=== PATIENT | female | born 1995 | race Caucasian/White ===

== ENCOUNTER 2016-07-30 10:25 | Emergency (ER) | payer BC, MEDICAID ==
[2016-07-30] MEDS ORDERED: Sodium Chloride 0.9% 1,000 ML IV ONE (10:56)
[2016-07-30] MEDS ORDERED: Ondansetron 4 MG/2 ML SDV IVPUSH ONE (10:56)
--- NOTE | 2016-07-30 10:56 | EDM.PDOC ---
ED HPI GENERAL MEDICAL PROBLEM - General Chief Complaint: Gastrointestinal Problem Stated Complaint: vomiting Time Seen by Provider: 07/30/16 10:55 Source of Information: Reports: Patient History Limitations: Reports: No Limitations - History of Present Illness INITIAL COMMENTS - FREE TEXT/NARRATIVE: 21 yo WF [id number] 17 weeks by U/S presents to ER complaining of vomiting x 2 days and feeling dehydrated. Pt reports an associated mild generalized headache. Pt denies any abdominal pain, or vaginal bleeding. Pt was last seen by her OB 3 weeks ago and had a normal U/S at that time. Pt denies any fever/ chills, denies any dysuria or frequency or urgency. 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 Denies: Abdominal Pain Musculoskeletal: Reports: No Symptoms Skin: Reports: No Symptoms Neurological: Reports: No Symptoms Psychiatric: Reports: No Symptoms Hematologic/Lymphatic: Reports: No Symptoms Immunologic: Reports: No Symptoms ED EXAM - Physical Exam Exam: See Below Exam Limited By: No Limitations General Appearance: Alert, WD/WN, No Apparent Distress Nose: Normal Inspection, Normal Mucosa, No Blood Throat/Mouth: Normal Inspection, Normal Lips, Normal Teeth, Normal Gums, Normal Oropharynx, Normal Voice, No Airway Compromise Head: Atraumatic, Normocephalic Neck: Normal Inspection, Supple, Non-Tender, Full Range of Motion Respiratory/Chest: No Respiratory Distress, Lungs Clear, Normal Breath Sounds, No Accessory Muscle Use, Chest Non-Tender Cardiovascular: Normal Peripheral Pulses, Regular Rate, Rhythm, No Edema, No Gallop, No JVD, No Murmur, No Rub GI/Abdominal: Normal Bowel Sounds, Soft, Non-Tender, No Organomegaly, No Distention, No Abnormal Bruit, No Mass Heart Tones: Present Back Exam: Normal Inspection, Full Range of Motion, NT Extremities: Normal Inspection, Normal Range of Motion, Non-Tender, Normal Capillary Refill, No Pedal Edema Neurological: Alert, Oriented, CN II-XII Intact, Normal Cognition, Normal Gait, Normal Reflexes, No Motor/Sensory Deficits Psychiatric: Normal Affect, Normal Mood Skin Exam: Warm, Dry, Intact, Normal Color, No Rash Lymphatic: No Adenopathy Course - Vital Signs Last Recorded V/S: Last Vital Signs Temp 36.7 C 07/30/16 10:35 Pulse 70 07/30/16 10:35 Resp 16 07/30/16 10:35 BP 130/64 07/30/16 10:35 Pulse Ox 99 07/30/16 10:35 - Orders/Labs/Meds Labs: Laboratory Tests 07/30/16 07/30/16 07/30/16 Range/Units 10:50 10:50 10:50 WBC 9.7 (5.0-10.0) 10^3/uL RBC 4.73 (3.80-5.50) 10^6/uL Hgb 12.7 (12.0-16.0) g/dL Hct 38.1 (37.0-47.0) % MCV 80.5 L (82.0-92.0) fL MCH 26.8 L (27.0-31.0) pg MCHC 33.3 (32.0-36.0) g/dL RDW 14.3 (11.5-14.5) % Plt Count 239 (150-300) 10^3/uL MPV 8.6 (7.4-10.4) fL Neut % (Auto) 80.1 H (50.0-70.0) % Lymph % (Auto) 15.7 L (20.0-40.0) % [place] % (Auto) 2.7 (2.0-8.0) % Eos % (Auto) 0.6 L (1.0-3.0) % Baso % (Auto) 0.9 (0.0-1.0) % Neut # (Auto) 7.7 H (2.5-7.0) 10^3/uL Lymph # (Auto) 1.5 (1.0-4.0) 10^3/uL [place] # (Auto) 0.3 (0.1-0.8) 10^3/uL Eos # (Auto) 0.1 (0.1-0.3) 10^3/uL Baso # (Auto) 0.1 (0.0-0.1) 10^3/uL Sodium 139 (136-145) mmol/L Potassium 4.1 (3.3-5.3) mmol/L Chloride 104 (98-115) mmol/L Carbon Dioxide 22.3 (21.0-32.0) mmol/L BUN 5 L (6-25) mg/dL Creatinine 0.71 (0.51-1.17) mg/dL Est Cr Clr Drug Dosing TNP Estimated GFR (MDRD) > 60 mL/min Glucose 91 (70-110) mg/dL Calcium 9.1 (8.7-10.3) mg/dL Total Bilirubin 0.4 (0.2-1.0) mg/dL AST 9 L (15-37) U/L ALT 20 (12-78) U/L Alkaline Phosphatase 98 (46-116) IU/L Total Protein 7.2 (6.4-8.2) g/dL Albumin 2.92 L (3.00-4.80) g/dL Lipase 135 (73-393) U/L HCG, Quant 301 mIU/mL Specimen Type Urine Color (YELLOW) Urine Appearance (CLEAR) Urine pH (5.0-9.0) Ur Specific [place] (1.005-1.030) Urine Protein (NEGATIVE) mg/dL Urine Glucose (UA) (NEGATIVE) mg/dL Urine Ketones (NEGATIVE) mg/dL Urine Occult Blood (NEGATIVE) Urine Nitrite (NEGATIVE) Urine Bilirubin (NEGATIVE) Urine Urobilinogen (0.2-1.0) E.U./dL Ur Leukocyte Esterase (NEGATIVE) Urine RBC /HPF Urine WBC /HPF Ur Epithelial Cells /LPF Urine Bacteria (NONE TO FEW) /HPF 07/30/16 Range/Units 11:30 WBC (5.0-10.0) 10^3/uL RBC (3.80-5.50) 10^6/uL Hgb (12.0-16.0) g/dL Hct (37.0-47.0) % MCV (82.0-92.0) fL MCH (27.0-31.0) pg MCHC (32.0-36.0) g/dL RDW (11.5-14.5) % Plt Count (150-300) 10^3/uL MPV (7.4-10.4) fL Neut % (Auto) (50.0-70.0) % Lymph % (Auto) (20.0-40.0) % [place] % (Auto) (2.0-8.0) % Eos % (Auto) (1.0-3.0) % Baso % (Auto) (0.0-1.0) % Neut # (Auto) (2.5-7.0) 10^3/uL Lymph # (Auto) (1.0-4.0) 10^3/uL [place] # (Auto) (0.1-0.8) 10^3/uL Eos # (Auto) (0.1-0.3) 10^3/uL Baso # (Auto) (0.0-0.1) 10^3/uL Sodium (136-145) mmol/L Potassium (3.3-5.3) mmol/L Chloride (98-115) mmol/L Carbon Dioxide (21.0-32.0) mmol/L BUN (6-25) mg/dL Creatinine (0.51-1.17) mg/dL Est Cr Clr Drug Dosing Estimated GFR (MDRD) mL/min Glucose (70-110) mg/dL Calcium (8.7-10.3) mg/dL Total Bilirubin (0.2-1.0) mg/dL AST (15-37) U/L ALT (12-78) U/L Alkaline Phosphatase (46-116) IU/L Total Protein (6.4-8.2) g/dL Albumin (3.00-4.80) g/dL Lipase (73-393) U/L HCG, Quant mIU/mL Specimen Type Urinvoid Urine Color Yellow (YELLOW) Urine Appearance Slightly cloudy H (CLEAR) Urine pH 7.0 (5.0-9.0) Ur Specific [place] 1.010 (1.005-1.030) Urine Protein Negative (NEGATIVE) mg/dL Urine Glucose (UA) Negative (NEGATIVE) mg/dL Urine Ketones Trace H (NEGATIVE) mg/dL Urine Occult Blood Trace-intact H (NEGATIVE) Urine Nitrite Negative (NEGATIVE) Urine Bilirubin Negative (NEGATIVE) Urine Urobilinogen 0.2 (0.2-1.0) E.U./dL Ur Leukocyte Esterase Negative (NEGATIVE) Urine RBC 0-5 /HPF Urine WBC 0-5 /HPF Ur Epithelial Cells Many H /LPF Urine Bacteria Occasional (NONE TO FEW) /HPF Meds: Medications Discontinued Medications Generic Name Dose Route Start Last Admin Trade Name Freq PRN Reason Stop Dose Admin Acetaminophen 1,000 mg 07/30/16 11:48 Tylenol Extra Strength PO 07/30/16 11:49 ONETIME ONE Sodium Chloride 1,000 mls @ 999 mls/hr 07/30/16 10:56 07/30/16 11:05 Normal Saline IV 07/30/16 11:56 999 mls/hr .BOLUS ONE Administration Ondansetron HCl 4 mg 07/30/16 10:56 07/30/16 11:15 Zofran IVPUSH 07/30/16 10:57 4 mg ONETIME ONE Administration Departure - Departure Time of Disposition: 12:02 Disposition: Home, Self-Care 01 Condition: good Clinical Impression: Hyperemesis gravidarum Urinary tract infection Qualifiers: Urinary tract infection type: acute cystitis Hematuria presence: without hematuria Qualified Code(s): N30.00 - Acute cystitis without hematuria - Discharge Information Prescriptions: Cephalexin [Keflex] 500 mg PO Q6HR #40 cap Ondansetron [Zofran ODT] 4 mg PO Q6H PRN #10 tab.dis PRN Reason: Vomiting Instructions: Hyperemesis Gravidarum, Urinary Tract Infection, Adult, Easy-to- Read Referrals: Megan Monique, FACULTY RESEARCH ASSISTANT [Primary Care Provider] - - Assessment/Plan Assessment:: 1. hyperemesis gravidarium- mild/improved 2. urinary tract infection Plan: 1. zofran ODT q8 PRN vomiting 2. keflex 500mg PO Q6 x 10 days 3. follow up with AIRLINE SECURITY REPRESENTATIVE next week for recheck 4. return to ER for worsening symptoms
[2016-07-30 11:22] LABS: CHLORIDE,CL 104 mmol/L (98-115); SODIUM,NA 139 mmol/L (136-145)
[2016-07-30 11:28] VITALS: BP 130/64
[2016-07-30] MEDS ORDERED: Acetaminophen 500 MG Tab PO ONE (11:48)
== END 2016-07-30 12:25 | disposition home or self-care (01) ==
LOC: KA.ED 10:25
DX: O21.0 Mild hyperemesis gravidarum (principal); O23.12 Infections of bladder in pregnancy, second trimester; Z79.899 Other long term (current) drug therapy; Z3A.17 17 weeks gestation of pregnancy
CPT/HCPCS: 80053; 81001; 83690; 84702; 85025; 96361; 96374; 99283; A9270; J2405; J7030

== ENCOUNTER 2016-10-22 17:58 | Emergency (ER) | payer BC, MEDICAID ==
[2016-10-22] MEDS ORDERED: Sodium Chloride 0.9% 1,000 ML IV ONE (18:24)
[2016-10-22 19:04] LABS: CHLORIDE,CL 103 mmol/L (98-115); SODIUM,NA 139 mmol/L (136-145)
--- NOTE | 2016-10-22 19:08 | EDM.PDOC ---
ED HPI GENERAL MEDICAL PROBLEM - General Chief Complaint: General Time Seen by Provider: 10/22/16 18:51 Source of Information: Reports: Patient History Limitations: Reports: No Limitations - History of Present Illness INITIAL COMMENTS - FREE TEXT/NARRATIVE: Patient presents with episodes of lightheadedness and sometimes near syncope. The first time was yesterday morning when she got up from bed. It lasted 30-60 seconds. She had a few more yesterday and 4-5 today. Usually associated with postural change but today she was sitting in her chair and felt her heart start to race. She denies any N/V or diarrhea recently. She is currently 30 weeks gestation with her second . The has been going fairly well. Earlier in her she had a lot of vomiting and dehydration but no for a couple months and she drinks about 3 liters of water daily she reports. She has had one UTI early in the but not since then and denies dysuria. She denies problems with anxiety. 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, Other OB/BYN History: - due in Jan 022016 - - Past Surgical History Other HEENT Surgeries/Procedures: reconstructive ear surgery Social & Family History - Family History Family Medical History: Noncontributory - Tobacco Use Smoking Status *Q: Never Smoker Second Hand Smoke Exposure: No - Caffeine Use Caffeine Use: Reports: None - Recreational Drug Use Recreational Drug Use: No ED ROS GENERAL - Review of Systems Review Of Systems: See Below Constitutional: Denies: Fever, Chills, Weakness, Decreased Appetite HEENT: Denies: Vertigo, Vision Change Respiratory: Reports: Shortness of Breath (She felt short of breath but was hyperventilating). Denies: Wheezing Cardiovascular: Reports: Lightheadedness. Denies: Chest Pain, Syncope GI/Abdominal: Denies: Abdominal Pain, Constipation, Diarrhea, Decreased Appetite , Nausea, Vomiting : Denies: Dysuria, Flank Pain Musculoskeletal: Reports: No Symptoms Skin: Reports: Pallor (her says she looked very pale for a little while before coming to ER). Denies: Cyanosis, Jaundice, Mottled Neurological: Denies: Confusion, Headache, Seizure, Syncope Psychiatric: Denies: Agitation, Anxiety, Confusion ED EXAM, GENERAL - Physical Exam Exam: See Below Exam Limited By: No Limitations General Appearance: Alert, WD/WN, No Apparent Distress Eye Exam: Bilateral Eye: EOMI, Normal Inspection, PERRL Ears: Normal External Exam, Hearing Grossly Normal Nose: Normal Inspection, No Blood Throat/Mouth: Normal Inspection, Normal Lips, Normal Voice, No Airway Compromise Head: Atraumatic, Normocephalic Neck: Normal Inspection, Supple, Non-Tender, Full Range of Motion Respiratory/Chest: No Respiratory Distress, Lungs Clear, Normal Breath Sounds Cardiovascular: Normal Peripheral Pulses, Regular Rate, Rhythm, No Murmur Peripheral Pulses: 2+: Carotid (L), Carotid (R), Radial (L), Radial (R), Posterior Tibial (L), Posterior Tibial (R) GI/Abdominal: Normal Bowel Sounds, Soft, Non-Tender, No Organomegaly, No Distention, Other (fundus consistent with stated gestation) Back Exam: No: CVA Tenderness (L), CVA Tenderness (R) Extremities: Normal Inspection, Normal Range of Motion, Non-Tender, No Pedal Edema Neurological: Alert, Oriented, Normal Cognition, No Motor/Sensory Deficits Psychiatric: Normal Affect, Normal Mood Skin Exam: Warm, Dry, Intact, Normal Color, No Rash Course - Vital Signs Last Recorded V/S: Last Vital Signs Temp 97.3 F 10/22/16 18:13 Pulse 113 H 10/22/16 18:56 Resp 15 10/22/16 18:56 BP 130/93 H 10/22/16 18:56 Pulse Ox 99 10/22/16 18:56 - Orders/Labs/Meds Orders: Active Orders 24 hr Category Date Time Status BASIC METABOLIC PANEL,BMP [CHEM] Stat Lab 10/22/16 18:35 Received UA W/MICROSCOPIC [URIN] Stat Lab 10/22/16 18:24 Uncollected Sodium Chloride 0.9% [Normal Saline] 1,000 ml Med 10/22/16 18:24 Active IV .BOLUS Medication Orders Sodium Chloride (Normal Saline) 1,000 mls @ 500 mls/hr IV .BOLUS ONE Stop: 10/22/16 20:23 Last Admin: 10/22/16 18:40 Dose: 500 mls/hr Labs: Laboratory Tests 10/22/16 Range/Units 18:35 WBC 11.4 H (5.0-10.0) 10^3/uL RBC 4.21 (3.80-5.50) 10^6/uL Hgb 11.9 L (12.0-16.0) g/dL Hct 35.0 L (37.0-47.0) % MCV 83.3 (82.0-92.0) fL MCH 28.2 (27.0-31.0) pg MCHC 33.9 (32.0-36.0) g/dL RDW 14.4 (11.5-14.5) % Plt Count 243 (150-300) 10^3/uL MPV 8.2 (7.4-10.4) fL Neut % (Auto) 81.2 H (50.0-70.0) % Lymph % (Auto) 14.4 L (20.0-40.0) % [place] % (Auto) 3.1 (2.0-8.0) % Eos % (Auto) 0.4 L (1.0-3.0) % Baso % (Auto) 0.9 (0.0-1.0) % Neut # (Auto) 9.3 H (2.5-7.0) 10^3/uL Lymph # (Auto) 1.6 (1.0-4.0) 10^3/uL [place] # (Auto) 0.4 (0.1-0.8) 10^3/uL Eos # (Auto) 0.0 L (0.1-0.3) 10^3/uL Baso # (Auto) 0.1 (0.0-0.1) 10^3/uL Meds: Medications Generic Name Dose Route Start Last Admin Trade Name Freq PRN Reason Stop Dose Admin Sodium Chloride 1,000 mls @ 500 mls/hr 10/22/16 18:24 10/22/16 18:40 Normal Saline IV 10/22/16 20:23 500 mls/hr .BOLUS ONE Administration - Re-Assessments/Exams Free Text/Narrative Re-Assessment/Exam: 10/22/16 19:12 She tells me that her WBC has been slightly elevated through the . Currently 11.4. heart tones at 150 bpm and steady. 10/22/16 19:55 Discussed labs and findings. Urine culture is pending. Following the fluids patient feels fine, at least for now. She wonders what to do if she feels the symptoms again and also wonders if it could be anxiety. I advised her to immediately lie down if she feels lightheaded again and discussed that this could indeed be anxiety even though she hasn't had it previously. I don't recommend starting any medications for it now, especially with her and advised follow up with her OB. Patient discharged in stable condition. Departure - Departure Time of Disposition: 19:49 Disposition: Home, Self-Care 01 Clinical Impression: Third trimester at less than 36 weeks, Intermittent lightheadedness - Discharge Information Referrals: Megan Monique, DIVING INSTRUCTOR [Primary Care Provider] - Additional Instructions: 1. Continue water intake of at least 8 cups daily. 2. Followup with your PCP/OB doctor for the ER visit. You can discuss the concern of possible anxiety. 3. Lie down immediately if you feel lightheaded to avoid falling. 4. Return to ER as needed. - My Orders Last 24 Hours: My Active Orders 10/22/16 18:24 UA W/MICROSCOPIC [URIN] Stat Sodium Chloride 0.9% [Normal Saline] 1,000 ml IV .BOLUS 10/22/16 18:35 BASIC METABOLIC PANEL,BMP [CHEM] Stat - Assessment/Plan Last 24 Hours: My Active Orders 10/22/16 18:24 UA W/MICROSCOPIC [URIN] Stat Sodium Chloride 0.9% [Normal Saline] 1,000 ml IV .BOLUS 10/22/16 18:35 BASIC METABOLIC PANEL,BMP [CHEM] Stat
[2016-10-22 19:39] VITALS: BP 119/63
== END 2016-10-22 20:00 | disposition home or self-care (01) ==
LOC: KA.ED 17:58
DX: O99.89 Other specified diseases and conditions complicating pregnancy, childbirth and the puerperium (principal); R42 Dizziness and giddiness; Z3A.36 36 weeks gestation of pregnancy; Z87.440 Personal history of urinary (tract) infections
CPT/HCPCS: 36415; 80048; 81001; 85025; 87086; 96360; 99284; J7030

== ENCOUNTER 2017-07-08 20:16 | Emergency (ER) | payer BC, MEDICAID ==
[2017-07-08 20:33] VITALS: BP 153/83
[2017-07-08] MEDS ORDERED: Oxymetazoline 0.05% Nasal Spray 15 ML Bottle NAS PRN (20:57)
--- NOTE | 2017-07-08 21:02 | EDM.PDOC ---
ED HPI GENERAL MEDICAL PROBLEM - General Chief Complaint: ENT Problem Stated Complaint: left ear pain Time Seen by Provider: 07/08/17 20:45 Source of Information: Reports: Patient History Limitations: Reports: No Limitations - History of Present Illness INITIAL COMMENTS - FREE TEXT/NARRATIVE: 22 YO WF presents to ER complaining of left ear pain x 3 days. Pt reports history of myringotomy and eustacion reconstruction. Pt reports pain has been intermittent but this evening it became worse prompting ER evaluation. Pt denies fever/chills, no nausea/vomting, no dizziness. 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 Denies: Ear Discharge Respiratory: Reports: No Symptoms Cardiovascular: Reports: No Symptoms Endocrine: Reports: No Symptoms GI/Abdominal: Reports: No Symptoms : Reports: No Symptoms Musculoskeletal: Reports: No Symptoms Skin: Reports: No Symptoms Neurological: Reports: No Symptoms Psychiatric: Reports: No Symptoms Hematologic/Lymphatic: Reports: No Symptoms Immunologic: Reports: No Symptoms ED EXAM, ENT - Physical Exam Exam: See Below Exam Limited By: No Limitations General Appearance: Alert, WD/WN, No Apparent Distress Ears: Normal External Exam, Normal Canal, Hearing Grossly Normal, TM Dullness. No: Normal TMs, Auricular Erythema, Auricular Ecchymosis, Auricular Tenderness, Mastoid Swelling, Mastoid Tenderness, TM Erythema, TM Blood, TM Fluid, TM Perforation, TM Vesicles, TM Obscured by Cerumen Nose: Normal Inspection, Normal Mucousa, No Blood Mouth/Throat: Normal Inspection, Normal Gums, Normal Lips, Normal Oropharynx, Normal Teeth Head: Atraumatic, Normocephalic Neck: Normal Inspection, Supple, Non-Tender, Full Range of Motion Respiratory/Chest: No Respiratory Distress, Lungs Clear, Normal Breath Sounds, No Accessory Muscle Use, Chest Non-Tender Cardiovascular: Normal Peripheral Pulses, Regular Rate, Rhythm, No Edema, No Gallop, No JVD, No Murmur, No Rub GI/Abdominal: Normal Bowel Sounds, Soft, Non-Tender, No Organomegaly, No Distention, No Abnormal Bruit, No Mass Back: Normal Inspection, Full Range of Motion Extremities: Normal Inspection, Normal Range of Motion, Non-Tender, No Pedal Edema, Normal Capillary Refill Neurological: Alert, Oriented, CN II-XII Intact, Normal Cognition, Normal Gait, Normal Reflexes, No Motor/Sensory Deficits Psychiatric: Normal Affect, Normal Mood Skin: Warm, Dry, Intact, Normal Color, No Rash Lymphatic: No Adenopathy Course - Vital Signs Last Recorded V/S: Last Vital Signs Temp 36.1 C 07/08/17 20:30 Pulse 95 07/08/17 20:30 Resp 16 07/08/17 20:30 BP 153/83 H 07/08/17 20:30 Pulse Ox 100 07/08/17 20:30 - Orders/Labs/Meds Orders: Active Orders 24 hr Category Date Time Status Oxymetazoline [Afrin Original 0.05% Nasal [place]] Med 07/08/17 20:57 Ordered 2 ml TONY BID PRN Departure - Departure Time of Disposition: 21:05 Disposition: Home, Self-Care 01 Condition: Good Clinical Impression: Otalgia of left ear - Discharge Information Instructions: Earache, Adult Referrals: Megan Monique, WAITER/WAITRESS BUFFET [Primary Care Provider] - Additional Instructions: 1. discharge home 2. afrin NS 2 sprays each nostril BID x 3 days 3. zyrtec 10mg PO QD 4. Benadryl 50mg PO QHS 5. Motrin 600mg PO Q6 6. follow up with PCP in 2 days for recheck 7. return to ER for worsening symptoms - My Orders Last 24 Hours: My Active Orders 07/08/17 20:57 Oxymetazoline [Afrin Original 0.05% Nasal [place]] 2 ml TONY BID PRN - Assessment/Plan Last 24 Hours: My Active Orders 07/08/17 20:57 Oxymetazoline [Afrin Original 0.05% Nasal [place]] 2 ml TONY BID PRN Assessment:: 1. Otalgia- left ear Plan: 1. discharge home 2. afrin NS 2 sprays each nostril BID x 3 days 3. zyrtec 10mg PO QD 4. Benadryl 50mg PO QHS 5. Motrin 600mg PO Q6 6. follow up with PCP in 2 days for recheck 7. return to ER for worsening symptoms
== END 2017-07-08 21:10 | disposition home or self-care (01) ==
LOC: KA.ED 20:16
DX: H92.02 Otalgia, left ear (principal)
CPT/HCPCS: 99282; A9270-GY

== ENCOUNTER 2018-03-09 17:50 | Emergency (ER) | payer BC ==
[2018-03-09] MEDS ORDERED: Sodium Chloride 0.9% 1,000 ML IV ONE (18:07)
[2018-03-09] MEDS ORDERED: Dextrose 5%-0.9% NaCl 1,000 ML IV SCH (18:30)
[2018-03-09] MEDS ORDERED: Ondansetron 4 MG/2 ML SDV IVPUSH ONE (18:34)
--- NOTE | 2018-03-09 18:35 | EDM.PDOC ---
ED HPI GENERAL MEDICAL PROBLEM - General Chief Complaint: Gastrointestinal Problem Stated Complaint: STOMACH FLU Time Seen by Provider: 03/09/18 18:30 Source of Information: Reports: Patient History Limitations: Reports: No Limitations - History of Present Illness INITIAL COMMENTS - FREE TEXT/NARRATIVE: Patient is a 22-year-old female who presents to the emergency department this evening for complaint of nausea, vomiting and diarrhea. Patient states that vomiting began this morning, but had diarrhea since yesterday.. Patient is 10 weeks . This the patient's third and she does have 2 children. is said to be uneventful to this point and she is being followed by [facility] [employer] [employer]. Patient denies chest pain, shortness of breath, abdominal pain, vaginal bleeding, dysuria, blood in stool or vomitus. Onset: Today Duration: Hour(s): Severity: Mild Improves with: Reports: None Worsens with: Reports: None Associated Symptoms: Reports: Nausea/Vomiting. Denies: Chest Pain, Fever/Chills , Shortness of Breath Upper Abdominal Pain Score (Numeric/FACES): 8 - Related Data Allergies Allergy/AdvReac Type Severity Reaction Status Date / Time No Known Drug Allergies Allergy Other Verified 03/09/18 18:02 Home Meds: Home Meds . [No Known Home Meds] 03/09/18 [History] Past Medical History HEENT History: Reports: Other (See Below) Other HEENT History: chronic ear infections,tube present (R) ear,graft to (L) ear. States has very limited hearing but can read lips. Gastrointestinal History: Reports: Cholelithiasis, Other (See Below) Other Gastrointestinal History: lap-lucila in 2017 Genitourinary History: Reports: UTI, Recurrent [employer] [employer] History: Reports: Hyperemesis, , Other (See Below) Other [employer] [employer] History: - due in Jan 022016 - Neurological History: Reports: Migraines - Past Surgical History HEENT Surgical History: Reports: Myringotomy w Tube(s), Other (See Below) Other HEENT Surgeries/Procedures: reconstructive ear surgery GI Surgical History: Reports: Cholecystectomy Social & Family History - Family History Family Medical History: Noncontributory - Caffeine Use Caffeine Use: Reports: None ED ROS GENERAL - Review of Systems Review Of Systems: ROS reveals no pertinent complaints other than HPI. Constitutional: Reports: No Symptoms HEENT: Reports: No Symptoms Respiratory: Reports: No Symptoms Cardiovascular: Reports: No Symptoms Endocrine: Reports: No Symptoms GI/Abdominal: Reports: Diarrhea, Nausea, Vomiting. Denies: Black Stool, Bloody Stool, Hematemesis, Hematochezia, Melena, Mucous in Stool : Reports: No Symptoms Musculoskeletal: Reports: No Symptoms Skin: Reports: No Symptoms Neurological: Reports: No Symptoms Psychiatric: Reports: No Symptoms Hematologic/Lymphatic: Reports: No Symptoms Immunologic: Reports: No Symptoms ED EXAM, GI/ABD - Physical Exam Exam: See Below Exam Limited By: No Limitations General Appearance: Alert, WD/WN, No Apparent Distress Throat/Mouth: Normal Inspection, Normal Oropharynx, No Airway Compromise Head: Atraumatic, Normocephalic Neck: Normal Inspection Respiratory/Chest: No Respiratory Distress, Lungs Clear, Normal Breath Sounds, No Accessory Muscle Use, Chest Non-Tender Cardiovascular: No Murmur, Tachycardia GI/Abdominal Exam: Normal Bowel Sounds, Soft, Non-Tender Back Exam: Normal Inspection. No: CVA Tenderness (L), CVA Tenderness (R) Extremities: Normal Inspection Neurological: Alert, Oriented, Normal Cognition Psychiatric: Normal Affect, Normal Mood Skin Exam: Warm, Dry, Intact, Normal Color, No Rash Lymphatic: No Adenopathy Course - Vital Signs Last Recorded V/S: Last Vital Signs Temp 97.1 F 03/09/18 17:57 Pulse 107 H 03/09/18 17:57 Resp 16 03/09/18 17:57 BP 164/88 H 03/09/18 17:57 Pulse Ox 99 03/09/18 17:57 - Orders/Labs/Meds Orders: Active Orders 24 hr Category Date Time Status Dextrose 5%-0.9% NaCl [Dextrose 5%-Normal Saline] 1,000 Med 03/09/18 18:30 Active ml IV ASDIRECTED Medication Orders Dextrose/Sodium Chloride (Dextrose 5%-Normal Saline) 1,000 mls @ 999 mls/hr IV ASDIRECTED JOSE D Last Admin: 03/09/18 18:24 Dose: 999 mls/hr Labs: Laboratory Tests 03/09/18 03/09/18 03/09/18 Range/Units 18:14 18:14 18:45 WBC 15.29 H (5.00-10.00) 10^3/uL RBC 5.10 (3.80-5.50) 10^6/uL Hgb 14.8 (12.0-16.0) g/dL Hct 42.3 (37.0-47.0) % MCV 82.9 (82.0-92.0) fL MCH 29.0 (27.0-31.0) pg MCHC 35.0 (32.0-36.0) g/dL RDW 13.4 (11.5-14.5) % Plt Count 323 (150-400) 10^3/uL MPV 9.5 (7.4-10.4) fL Immature Gran % (Auto) 0.1 (0.0-5.0) % Neut % (Auto) 82.3 H (50.0-70.0) % Lymph % (Auto) 14.1 L (20.0-40.0) % [place] % (Auto) 3.2 (2.0-8.0) % Eos % (Auto) 0.2 L (1.0-3.0) % Baso % (Auto) 0.1 (0.0-1.0) % Immature Gran # (Auto) 0.02 (0.00-0.50) 10^3/uL Neut # (Auto) 12.57 H (2.50-7.00) 10^3/uL Lymph # (Auto) 2.16 (1.00-4.00) 10^3/uL [place] # (Auto) 0.49 (0.10-0.80) 10^3/uL Eos # (Auto) 0.03 L (0.10-0.30) 10^3/uL Baso # (Auto) 0.02 (0.00-0.10) 10^3/uL Sodium 138 (136-145) mmol/L Potassium 3.6 (3.3-5.3) mmol/L Chloride 100 (98-115) mmol/L Carbon Dioxide 24.0 (21.0-32.0) mmol/L Anion Gap 17.6 H (5-15) mmol/L BUN 9 (6-25) mg/dL Creatinine 0.73 (0.51-1.17) mg/dL Est Cr Clr Drug Dosing 139.50 mL/min Estimated GFR (MDRD) > 60 mL/min Glucose 108 H (75 - 99) mg/dL Calcium 9.5 (8.7-10.3) mg/dL Total Bilirubin 0.3 (0.2-1.0) mg/dL AST 10 L (15-37) U/L ALT 26 (12-78) U/L Alkaline Phosphatase 94 (46-116) IU/L Total Protein 8.2 (6.4-8.2) g/dL Albumin 3.55 (3.00-4.80) g/dL Specimen Type Urincc Urine Color Yellow (YELLOW) Urine Appearance Slightly cloudy H (CLEAR) Urine pH 5.5 (5.0-9.0) Ur Specific [place] >= 1.030 (1.005-1.030) Urine Protein Negative (NEGATIVE) mg/dL Urine Glucose (UA) Negative (NEGATIVE) mg/dL Urine Ketones Negative (NEGATIVE) mg/dL Urine Occult Blood Small H (NEGATIVE) Urine Nitrite Negative (NEGATIVE) Urine Bilirubin Negative (NEGATIVE) Urine Urobilinogen 0.2 (0.2-1.0) E.U./dL Ur Leukocyte Esterase Negative (NEGATIVE) Urine RBC 0-5 (0-5) /HPF Urine WBC 5-10 H (0-5) /HPF Ur Epithelial Cells Many H /LPF Urine Bacteria Few (NONE TO FEW) /HPF Meds: Medications Generic Name Dose Route Start Last Admin Trade Name Freq PRN Reason Stop Dose Admin Dextrose/Sodium Chloride 1,000 mls @ 999 mls/hr 03/09/18 18:30 03/09/18 18:24 Dextrose 5%-Normal Saline IV 999 mls/hr ASDIRECTED JOSE D Administration Discontinued Medications Generic Name Dose Route Start Last Admin Trade Name Freq PRN Reason Stop Dose Admin Sodium Chloride 1,000 mls @ 999 mls/hr 03/09/18 18:07 03/09/18 18:31 Normal Saline IV 03/09/18 19:07 Not Given .BOLUS ONE Ondansetron HCl 8 mg 03/09/18 18:34 03/09/18 18:37 Zofran IVPUSH 03/09/18 18:35 8 mg ONETIME ONE Administration Ondansetron HCl 8 mg 03/09/18 19:08 Zofran Odt PO 03/09/18 19:09 ONETIME ONE - Re-Assessments/Exams Free Text/Narrative Re-Assessment/Exam: 03/09/18 19:04 Patient afebrile, nontoxic appearing, vital signs stable, nausea, vomiting has resolved. Patient will be given 2 tabs of 4 mg Zofran to go. Patient does have a prescription for Reglan from her primary and will have that filled tomorrow and will follow-up with primary in 1-2 days. Departure - Departure Time of Disposition: 19:05 Disposition: Home, Self-Care 01 Condition: Good Clinical Impression: Vomiting, Diarrhea, Viral gastroenteritis - Discharge Information Instructions: Viral Gastroenteritis, Adult, [id number], Vomiting, Adult, Nausea, Adult, [id number], Diarrhea, Adult, [id number] Forms: ED Department Discharge Additional Instructions: Follow-up at [facility] in 1-2 days. Return to emergency department sooner if symptoms continue or worsen. - My Orders Last 24 Hours: My Active Orders 03/09/18 18:30 Dextrose 5%-0.9% NaCl [Dextrose 5%-Normal Saline] 1,000 ml IV ASDIRECTED - Assessment/Plan Last 24 Hours: My Active Orders 03/09/18 18:30 Dextrose 5%-0.9% NaCl [Dextrose 5%-Normal Saline] 1,000 ml IV ASDIRECTED Assessment:: Nausea, vomiting, diarrhea Plan: Follow-up with PCP in one to 2 days
[2018-03-09 18:53] LABS: ANION GAP 17.6 mmol/L (5-15); CHLORIDE,CL 100 mmol/L (98-115); SODIUM,NA 138 mmol/L (136-145)
[2018-03-09] MEDS ORDERED: Ondansetron 4 MG Tab.DIS PO ONE (19:08)
[2018-03-09 19:15] VITALS: BP 124/64
== END 2018-03-09 20:08 | disposition home or self-care (01) ==
LOC: KA.ED 17:50
DX: A08.4 Viral intestinal infection, unspecified (principal)
CPT/HCPCS: 36415; 80053; 81001; 85025; 96361; 96374; 99284; A9270-GY; J2405; J7042

== ENCOUNTER 2018-05-18 20:05 | Emergency (ER) | payer BC ==
[2018-05-18] MEDS ORDERED: Sodium Chloride 0.9% 1,000 ML IV ONE (20:32)
[2018-05-18] MEDS ORDERED: Sodium Chloride 0.9% 10 ML Syringe FLUSH PRN (20:33)
--- NOTE | 2018-05-18 20:59 | EDM.PDOC ---
ED HPI GENERAL MEDICAL PROBLEM - General Chief Complaint: [employer] Problem Stated Complaint: Abdominal pain Time Seen by Provider: 05/18/18 20:31 Source of Information: Reports: Patient History Limitations: Reports: No Limitations - History of Present Illness INITIAL COMMENTS - FREE TEXT/NARRATIVE: Patient is a 23-year-old female who presents to the emergency department this evening with a complaint of abdominal cramping and low back pain. She states that she is 19 weeks , discomfort began about 3 days ago and has been intermittent. has been uneventful. Her [employer] is in [place]. States that she had some episodes of dysuria and dark urine. Also admits to constipation. She had one episode of nausea and vomiting this afternoon. Patient denies fever, flank pain, shortness of breath, chest pain, vaginal bleeding, or blood in stool. Onset: Gradual Duration: Day(s): Location: Reports: Abdomen Quality: Reports: Other (Cramping) Severity: Mild Improves with: Reports: Rest Worsens with: Reports: Movement Associated Symptoms: Reports: Nausea/Vomiting Abdomen Pain Score (Numeric/FACES): 6 - Related Data Allergies Allergy/AdvReac Type Severity Reaction Status Date / Time No Known Drug Allergies Allergy Other Verified 05/18/18 20:34 Home Meds: Home Meds Magnesium 30 mg PO DAILY 05/18/18 [History] Metoclopramide [Reglan] 1 tab PO ASDIRECTED PRN 05/18/18 [History] Pnv No.95/Ferrous Fum/Folic AC [ Caplet] 1 tab PO DAILY 05/18/18 [ History] Past Medical History HEENT History: Reports: Other (See Below) Other HEENT History: chronic ear infections,tube present (R) ear,graft to (L) ear. States has very limited hearing but can read lips. Gastrointestinal History: Reports: Cholelithiasis, Other (See Below) Other Gastrointestinal History: lap-lucila in 2017 Genitourinary History: Reports: UTI, Recurrent [employer] History: Reports: Hyperemesis, , Other (See Below) Other [employer] History: - due in Jan 022016 - . due Oct 16 2018 Neurological History: Reports: Migraines - Past Surgical History Head Surgeries/Procedures: Reports: None HEENT Surgical History: Reports: Myringotomy w Tube(s), Other (See Below) Other HEENT Surgeries/Procedures: reconstructive ear surgery GI Surgical History: Reports: Cholecystectomy Dermatological Surgical History: Reports: None Social & Family History - Family History Family Medical History: Noncontributory - Tobacco Use Smoking Status *Q: Never Smoker - Caffeine Use Caffeine Use: Reports: Soda - Recreational Drug Use Recreational Drug Use: No ED ROS GENERAL - Review of Systems Review Of Systems: ROS reveals no pertinent complaints other than HPI. Constitutional: Reports: No Symptoms HEENT: Reports: No Symptoms Respiratory: Reports: No Symptoms Cardiovascular: Reports: No Symptoms Endocrine: Reports: No Symptoms GI/Abdominal: Reports: Abdominal Pain, Constipation : Reports: Dysuria Musculoskeletal: Reports: Back Pain Skin: Reports: No Symptoms Neurological: Reports: No Symptoms Psychiatric: Reports: No Symptoms Hematologic/Lymphatic: Reports: No Symptoms Immunologic: Reports: No Symptoms ED EXAM - Physical Exam Exam: See Below Exam Limited By: No Limitations General Appearance: Alert, WD/WN, Anxious Throat/Mouth: Normal Inspection, Normal Oropharynx, No Airway Compromise Respiratory/Chest: No Respiratory Distress, Lungs Clear, Normal Breath Sounds, No Accessory Muscle Use, Chest Non-Tender Cardiovascular: Normal Peripheral Pulses, Regular Rate, Rhythm, No Murmur GI/Abdominal Exam: Normal Bowel Sounds, Soft, Tender (Suprapubic). No: Guarding , Rigid, Rebound Heart Tones: Present Heart Tones per Min: 170 Movement: Not Appreciated Back Exam: Paraspinal Tenderness. No: CVA Tenderness (L), CVA Tenderness (R) Extremities: Normal Inspection, No Pedal Edema Neurological: Alert, Oriented, Normal Cognition Psychiatric: Normal Affect, Normal Mood Skin Exam: Warm, Dry, Intact, Normal Color, No Rash Lymphatic: No Adenopathy Course - Vital Signs Last Recorded V/S: Last Vital Signs Temp 95.9 F 05/18/18 20:36 Pulse 90 05/18/18 21:34 Resp 16 05/18/18 21:34 BP 95/45 L 05/18/18 21:34 Pulse Ox 99 05/18/18 21:34 - Orders/Labs/Meds Orders: Active Orders 24 hr Category Date Time Status Peripheral IV Care [RC] . DIRECTED Care 05/18/18 20:33 Active Sodium Chloride 0.9% [Saline Flush] Med 05/18/18 20:33 Active 10 ml FLUSH Q8HR PRN Peripheral IV Insertion Adult [OM.PC] Routine Oth 05/18/18 20:33 Ordered Medication Orders Sodium Chloride (Saline Flush) 10 ml FLUSH Q8HR PRN PRN Reason: keep vein open Labs: Laboratory Tests 05/18/18 05/18/18 05/18/18 Range/Units 20:25 20:25 20:25 WBC 12.29 H (5.00-10.00) 10^3/uL RBC 4.33 (3.80-5.50) 10^6/uL Hgb 12.5 D (12.0-16.0) g/dL Hct 35.9 L (37.0-47.0) % MCV 82.9 (82.0-92.0) fL MCH 28.9 (27.0-31.0) pg MCHC 34.8 (32.0-36.0) g/dL RDW 14.0 (11.5-14.5) % Plt Count 256 (150-400) 10^3/uL MPV 10.0 (7.4-10.4) fL Immature Gran % (Auto) 0.3 (0.0-5.0) % Neut % (Auto) 78.2 H (50.0-70.0) % Lymph % (Auto) 17.5 L (20.0-40.0) % [place] % (Auto) 3.5 (2.0-8.0) % Eos % (Auto) 0.3 L (1.0-3.0) % Baso % (Auto) 0.2 (0.0-1.0) % Immature Gran # (Auto) 0.04 (0.00-0.50) 10^3/uL Neut # (Auto) 9.61 H (2.50-7.00) 10^3/uL Lymph # (Auto) 2.15 (1.00-4.00) 10^3/uL [place] # (Auto) 0.43 (0.10-0.80) 10^3/uL Eos # (Auto) 0.04 L (0.10-0.30) 10^3/uL Baso # (Auto) 0.02 (0.00-0.10) 10^3/uL Sodium 138 (136-145) mmol/L Potassium 3.6 (3.3-5.3) mmol/L Chloride 100 (98-115) mmol/L Carbon Dioxide 24.1 (21.0-32.0) mmol/L Anion Gap 17.5 H (5-15) mmol/L BUN 7 (6-25) mg/dL Creatinine 0.70 (0.51-1.17) mg/dL Est Cr Clr Drug Dosing 135.16 mL/min Estimated GFR (MDRD) > 60 mL/min Glucose 87 (75 - 99) mg/dL Calcium 9.2 (8.7-10.3) mg/dL Total Bilirubin 0.3 (0.2-1.0) mg/dL AST 11 L (15-37) U/L ALT 16 (12-78) U/L Alkaline Phosphatase 92 (46-116) IU/L Total Protein 6.8 (6.4-8.2) g/dL Albumin 2.74 L (3.00-4.80) g/dL HCG, Quant 74833 mIU/mL Specimen Type . Urine Color Yellow (YELLOW) Urine Appearance Clear (CLEAR) Urine pH 6.0 (5.0-9.0) Ur Specific [place] 1.020 (1.005-1.030) Urine Protein Trace H (NEGATIVE) mg/dL Urine Glucose (UA) Negative (NEGATIVE) mg/dL Urine Ketones 15 H (NEGATIVE) mg/dL Urine Occult Blood Trace-intact H (NEGATIVE) Urine Nitrite Negative (NEGATIVE) Urine Bilirubin Negative (NEGATIVE) Urine Urobilinogen 0.2 (0.2-1.0) E.U./dL Ur Leukocyte Esterase Negative (NEGATIVE) Urine RBC 0-5 (0-5) /HPF Urine WBC 0-5 (0-5) /HPF Ur Epithelial Cells Many H /LPF Urine Bacteria Few (NONE TO FEW) /HPF Meds: Medications Generic Name Dose Route Start Last Admin Trade Name Freq PRN Reason Stop Dose Admin Sodium Chloride 10 ml 05/18/18 20:33 Saline Flush FLUSH Q8HR PRN keep vein open Discontinued Medications Generic Name Dose Route Start Last Admin Trade Name Freq PRN Reason Stop Dose Admin Sodium Chloride 1,000 mls @ 999 mls/hr 05/18/18 20:32 05/18/18 20:30 Normal Saline IV 05/18/18 21:32 999 mls/hr .BOLUS ONE Administration - Re-Assessments/Exams Free Text/Narrative Re-Assessment/Exam: 05/18/18 21:34 Patient afebrile, vital signs stable, appears nontoxic and discomfort relieved. Patient will contact [employer] tomorrow for suggestions on laxatives. Patient will return to the ER sooner if symptoms continue or worsen Departure - Departure Time of Disposition: 21:35 Disposition: Home, Self-Care 01 Condition: Good Clinical Impression: Abdominal pain during in second trimester Constipation Qualifiers: Constipation type: unspecified constipation type Qualified Code(s): K59.00 - Constipation, unspecified - Discharge Information Instructions: Constipation, Adult, [id number], Abdominal Pain During Forms: ED Department Discharge Additional Instructions: Contact [employer] tomorrow for laxative suggestions. Return to emergency department if symptoms continue or worsen. - My Orders Last 24 Hours: My Active Orders 05/18/18 20:33 Peripheral IV Care [RC] . DIRECTED Sodium Chloride 0.9% [Saline Flush] 10 ml FLUSH Q8HR PRN Peripheral IV Insertion Adult [OM.PC] Routine - Assessment/Plan Last 24 Hours: My Active Orders 05/18/18 20:33 Peripheral IV Care [RC] . DIRECTED Sodium Chloride 0.9% [Saline Flush] 10 ml FLUSH Q8HR PRN Peripheral IV Insertion Adult [OM.PC] Routine Assessment:: Plan: Follow-up with [employer]
[2018-05-18 21:24] LABS: ANION GAP 17.5 mmol/L (5-15); CHLORIDE,CL 100 mmol/L (98-115); SODIUM,NA 138 mmol/L (136-145)
[2018-05-18 21:35] VITALS: BP 95/45
== END 2018-05-18 21:55 | disposition home or self-care (01) ==
LOC: KA.ED 20:05
DX: O99.612 Diseases of the digestive system complicating pregnancy, second trimester (principal); K59.00 Constipation, unspecified; Z96.22 Myringotomy tube(s) status; Z90.49 Acquired absence of other specified parts of digestive tract; Z3A.19 19 weeks gestation of pregnancy
CPT/HCPCS: 36415; 80053; 81001; 84702; 85025; 96360; 99284-25; J7030

== ENCOUNTER 2019-04-28 18:04 | Emergency (ER) | payer BC, MEDICAID ==
[2019-04-28] MEDS ORDERED: Sodium Chloride 0.9% 1,000 ML IV ONE (18:17)
[2019-04-28] MEDS ORDERED: Metoclopramide 10 MG/2 ML SDV IVPUSH ONE (18:23)
--- NOTE | 2019-04-28 18:30 | EDM.PDOC ---
ED HPI GENERAL MEDICAL PROBLEM - General Chief Complaint: General Stated Complaint: vomiting Time Seen by Provider: 04/28/19 18:23 Source of Information: Reports: Patient History Limitations: Reports: No Limitations - History of Present Illness INITIAL COMMENTS - FREE TEXT/NARRATIVE: Patient is a 23-year-old female who presents to the emergency department via private vehicle with complaint of nausea, vomiting and diarrhea. Patient states she became nauseous and vomited last evening at 2300. She developed minor abdominal cramping and 3 episodes of diarrhea today. Patient is also felt nauseous and had multiple episodes of vomiting. Patient states that 2 other family members have been sick for the last 2-3 days with similar symptoms. She denies out of country travel for family members or herself, or suspicion of contaminated food. Patient denies chest pain, shortness of breath , blood in vomitus or stool, dysuria, suspicion for , fever, or flank pain. Patient does have history of cholecystectomy Onset: Gradual Onset Date: 04/27/19 Onset Time: 23:00 Duration: Hour(s): Location: Reports: Abdomen Quality: Reports: Other (Cramping) Severity: Mild Improves with: Reports: None Worsens with: Reports: None Associated Symptoms: Reports: Nausea/Vomiting. Denies: Chest Pain, Cough, Diaphoresis, Fever/Chills, Shortness of Breath Abdomen Pain Score (Numeric/FACES): 8 - Related Data Allergies Allergy/AdvReac Type Severity Reaction Status Date / Time No Known Drug Allergies Allergy Other Verified 04/28/19 18:51 Home Meds: Home Meds . [No Known Home Meds] 04/28/19 [History] Past Medical History HEENT History: Reports: Other (See Below) Other HEENT History: chronic ear infections,tube present (R) ear,graft to (L) ear. States has very limited hearing but can read lips. Gastrointestinal History: Reports: Cholelithiasis, Other (See Below) Other Gastrointestinal History: lap-lucila in 2017 Genitourinary History: Reports: UTI, Recurrent YARROW GATHERER History: Reports: Hyperemesis, , Other (See Below) Other YARROW GATHERER History: - due in Jan 022016 - . due Oct 16 2018 Neurological History: Reports: Migraines - Past Surgical History Head Surgeries/Procedures: Reports: None HEENT Surgical History: Reports: Myringotomy w Tube(s), Other (See Below) Other HEENT Surgeries/Procedures: reconstructive ear surgery GI Surgical History: Reports: Cholecystectomy Dermatological Surgical History: Reports: None Social & Family History - Family History Family Medical History: Noncontributory - Caffeine Use Caffeine Use: Reports: Soda ED ROS GENERAL - Review of Systems Review Of Systems: See Below Constitutional: Reports: No Symptoms HEENT: Reports: No Symptoms Respiratory: Reports: No Symptoms Cardiovascular: Reports: No Symptoms Endocrine: Reports: No Symptoms GI/Abdominal: Reports: Abdominal Pain, Diarrhea, Nausea, Vomiting. Denies: Black Stool, Bloody Stool, Hematemesis, Hematochezia, Melena, Mucous in Stool : Reports: No Symptoms Musculoskeletal: Reports: No Symptoms Skin: Reports: No Symptoms Neurological: Reports: No Symptoms Psychiatric: Reports: No Symptoms Hematologic/Lymphatic: Reports: No Symptoms Immunologic: Reports: No Symptoms ED EXAM, GENERAL - Physical Exam Exam: See Below Exam Limited By: No Limitations General Appearance: Alert, WD/WN, No Apparent Distress Throat/Mouth: Normal Inspection, Normal Oropharynx, No Airway Compromise Head: Atraumatic, Normocephalic Neck: Normal Inspection Respiratory/Chest: No Respiratory Distress, Lungs Clear, Normal Breath Sounds, No Accessory Muscle Use, Chest Non-Tender Cardiovascular: No Murmur, Tachycardia GI/Abdominal: Normal Bowel Sounds, Soft, No Organomegaly, No Distention, No Mass , Tender (Mild tenderness diffusely) Back Exam: Normal Inspection. No: CVA Tenderness (L), CVA Tenderness (R) Extremities: Normal Inspection, No Pedal Edema Neurological: Alert, Oriented, Normal Cognition Psychiatric: Normal Affect, Normal Mood Skin Exam: Warm, Dry, Intact, Normal Color, No Rash Lymphatic: No Adenopathy Course - Vital Signs Last Recorded V/S: Last Vital Signs Temp 97 F 04/28/19 18:10 Pulse 100 04/28/19 18:54 Resp 18 04/28/19 18:54 BP 120/71 04/28/19 18:54 Pulse Ox 98 04/28/19 18:54 - Orders/Labs/Meds Orders: Active Orders 24 hr Category Date Time Status Peripheral IV Care [RC] . DIRECTED Care 04/28/19 18:50 Active Metoclopramide [Reglan] Med 04/28/19 19:09 Once 30 mg PO ONETIME ONE Sodium Chloride 0.9% [Normal Saline] 1,000 ml Med 04/28/19 18:17 Active IV .BOLUS Sodium Chloride 0.9% [Saline Flush] Med 04/28/19 18:50 Active 10 ml FLUSH Q8HR PRN Peripheral IV Insertion Adult [OM.PC] Routine Oth 04/28/19 18:10 Ordered Medication Orders Sodium Chloride (Normal Saline) 1,000 mls @ 999 mls/hr IV .BOLUS ONE Stop: 04/28/19 19:17 Last Admin: 04/28/19 18:23 Dose: 999 mls/hr Sodium Chloride (Saline Flush) 10 ml FLUSH Q8HR PRN PRN Reason: keep vein open Labs: Laboratory Tests 04/28/19 04/28/19 04/28/19 Range/Units 18:17 18:17 18:48 WBC 14.96 H (5.00-10.00) 10^3/uL RBC 5.03 (3.80-5.50) 10^6/uL Hgb 13.7 (12.0-16.0) g/dL Hct 41.3 (37.0-47.0) % MCV 82.1 (82.0-92.0) fL MCH 27.2 (27.0-31.0) pg MCHC 33.2 (32.0-36.0) g/dL RDW 14.6 H (11.5-14.5) % Plt Count 292 (150-400) 10^3/uL MPV 9.6 (7.4-10.4) fL Add Manual Diff Yes Neutrophils % (Manual) 92 H (50-70) % Lymphocytes % (Manual) 7 L (20-40) % Monocytes % (Manual) 1 L (2-8) % Absolute Neutrophils 13.7632 Lymphocytes # (Manual) 1.0472 Monocytes # (Manual) 0.1496 Sodium 137 (136-145) mmol/L Potassium 4.0 (3.3-5.3) mmol/L Chloride 100 (98-115) mmol/L Carbon Dioxide 25.5 (21.0-32.0) mmol/L Anion Gap 15.5 H (5-15) mmol/L BUN 17 (6-25) mg/dL Creatinine 0.84 (0.51-1.17) mg/dL Est Cr Clr Drug Dosing 116.42 mL/min Estimated GFR (MDRD) > 60 mL/min Glucose 117 H (75 - 99) mg/dL Calcium 8.5 L (8.7-10.3) mg/dL Total Bilirubin 0.7 (0.2-1.0) mg/dL AST 12 L (15-37) U/L ALT 31 (12-78) U/L Alkaline Phosphatase 102 (46-116) IU/L Total Protein 8.0 (6.4-8.2) g/dL Albumin 3.66 (3.00-4.80) g/dL HCG, Quant 1 mIU/mL Specimen Type Urinblad Urine Color Yellow (YELLOW) Urine Appearance Slightly cloudy H (CLEAR) Urine pH 5.5 (5.0-9.0) Ur Specific [place] >= 1.030 (1.005-1.030) Urine Protein Negative (NEGATIVE) mg/dL Urine Glucose (UA) Negative (NEGATIVE) mg/dL Urine Ketones Negative (NEGATIVE) mg/dL Urine Occult Blood Moderate H (NEGATIVE) Urine Nitrite Negative (NEGATIVE) Urine Bilirubin Negative (NEGATIVE) Urine Urobilinogen 0.2 (0.2-1.0) E.U./dL Ur Leukocyte Esterase Negative (NEGATIVE) Urine RBC 0-5 (0-5) /HPF Urine WBC 5-10 H (0-5) /HPF Ur Epithelial Cells Moderate H /LPF Urine Bacteria Moderate H (NONE TO FEW) /HPF Meds: Medications Generic Name Dose Route Start Last Admin Trade Name Freq PRN Reason Stop Dose Admin Sodium Chloride 1,000 mls @ 999 mls/hr 04/28/19 18:17 04/28/19 18:23 Normal Saline IV 04/28/19 19:17 999 mls/hr .BOLUS ONE Administration Sodium Chloride 10 ml 04/28/19 18:50 Saline Flush FLUSH Q8HR PRN keep vein open Discontinued Medications Generic Name Dose Route Start Last Admin Trade Name Freq PRN Reason Stop Dose Admin Metoclopramide HCl 10 mg 04/28/19 18:23 04/28/19 18:29 Reglan IVPUSH 04/28/19 18:24 10 mg ONETIME ONE Administration Metoclopramide HCl 30 mg 04/28/19 19:09 Reglan PO 04/28/19 19:10 ONETIME ONE - Re-Assessments/Exams Free Text/Narrative Re-Assessment/Exam: 04/28/19 19:10 Patient afebrile, vital signs stable, nausea and abdominal discomfort resolved. Patient will follow-up with PCP Departure - Departure Time of Disposition: 19:11 Disposition: Home, Self-Care 01 Condition: Good Clinical Impression: Vomiting, Diarrhea - Discharge Information Instructions: Nausea and Vomiting, Adult, [id number], Diarrhea, Adult, Easy- to-Read Referrals: Fay Monique SQUIRT MACHINE OPERATOR [Primary Care Provider] - Forms: ED Department Discharge Additional Instructions: Follow-up with PCP in 2-3 days. Return to ER sooner if symptoms continue or worsen. Take medication as directed. Sepsis Event Note - Evaluation Sepsis Screening Result: No Definite Risk - Focused Exam Vital Signs: Vital Signs Temp Pulse Resp BP Pulse Ox 04/28/19 18:54 100 18 120/71 98 04/28/19 18:10 97 F 117 H 18 122/62 99 Date Exam was Performed: 04/28/19 Time Exam was Performed: 19:10 - My Orders Last 24 Hours: My Active Orders 04/28/19 18:10 Peripheral IV Insertion Adult [OM.PC] Routine 04/28/19 18:17 Sodium Chloride 0.9% [Normal Saline] 1,000 ml IV .BOLUS 04/28/19 18:50 Peripheral IV Care [RC] . DIRECTED Sodium Chloride 0.9% [Saline Flush] 10 ml FLUSH Q8HR PRN 04/28/19 19:09 Metoclopramide [Reglan] 30 mg PO ONETIME ONE - Assessment/Plan Last 24 Hours: My Active Orders 04/28/19 18:10 Peripheral IV Insertion Adult [OM.PC] Routine 04/28/19 18:17 Sodium Chloride 0.9% [Normal Saline] 1,000 ml IV .BOLUS 04/28/19 18:50 Peripheral IV Care [RC] . DIRECTED Sodium Chloride 0.9% [Saline Flush] 10 ml FLUSH Q8HR PRN 04/28/19 19:09 Metoclopramide [Reglan] 30 mg PO ONETIME ONE Assessment:: Vomiting and diarrhea Plan: Follow-up with PCP
[2019-04-28] MEDS ORDERED: Sodium Chloride 0.9% 10 ML Syringe FLUSH PRN (18:50)
[2019-04-28 18:54] VITALS: BP 120/71; PULSE 100
[2019-04-28 18:58] LABS: ANION GAP 15.5 mmol/L (5-15); CHLORIDE,CL 100 mmol/L (98-115); SODIUM,NA 137 mmol/L (136-145)
[2019-04-28] MEDS ORDERED: Metoclopramide Oral Soln 10 MG/10 ML UD Cup PO ONE (19:09)
[2019-04-28] MEDS ORDERED: Metoclopramide 10 MG Tab PO ONE (19:12)
== END 2019-04-28 19:35 | disposition home or self-care (01) ==
LOC: KA.ED 18:04
DX: R19.7 Diarrhea, unspecified (principal); R11.10 Vomiting, unspecified; Z96.22 Myringotomy tube(s) status; Z90.49 Acquired absence of other specified parts of digestive tract
CPT/HCPCS: 80053; 81001; 84702; 85025; 96361; 96374; 99284-25; J2765; J7030

== ENCOUNTER 2021-01-24 14:16 | Emergency (ER) | payer BC, MEDICAID ==
[2021-01-24] MEDS ORDERED: Sodium Chloride 0.9% 10 ML Syringe FLUSH PRN (14:24)
[2021-01-24] MEDS ORDERED: Sodium Chloride 0.9% 1,000 ML IV ONE (14:32)
--- NOTE | 2021-01-24 14:32 | EDM.PDOC ---
ED HPI GENERAL MEDICAL PROBLEM - General Chief Complaint: Neurological Problem Stated Complaint: MIGRAINES Time Seen by Provider: 01/24/21 14:16 Source of Information: Reports: Patient, Family History Limitations: Reports: No Limitations, Other - History of Present Illness INITIAL COMMENTS - FREE TEXT/NARRATIVE: Minerva, 25-year-old female, originally presented to the clinic for evaluation of ongoing migraine headache for 3 days. Upon initial screening and my initial discussion with her as she is not a [facility] clinic patient, normally being seen in the [facility] clinic she expressed to me 3-day history of headache worsening with 2 events of syncope and multiple events of dizziness & weakness with positioning. She denies diarrhea with last bowel movement being 2 days ago. States she is not eaten or drank for the past 24 hours, with decrease since onset. She stated headache typically begins behind the eyes and this 1 has gradually worsened since its onset with other associated symptoms occurring. She has felt slightly chilled since arrival but prior to that denied fever or chills. She initially felt this was her routine headache but it progressed in intensity as well as its longevity. Menses started on Friday with no risk. Denies rigidity to her neck. Denies any exposures of documented confirmation for recent illness of influenza or COVID-19. She is not COVID-19 vaccinated. Has minimal nausea occurring at this time but stated it was more severe this morning. Onset Date: 01/21/21 Duration: Day(s):, Getting Worse Location: Reports: Head Quality: Reports: Sharp, Throbbing Severity: Severe Improves with: Reports: None Worsens with: Reports: Movement Context: Reports: Other Associated Symptoms: Reports: Cough, Fever/Chills, Loss of Appetite, Malaise, Nausea/Vomiting, Syncope, Weakness Head Pain Score (Numeric/FACES): 10 - Related Data Allergies Allergy/AdvReac Type Severity Reaction Status Date / Time No Known Drug Allergies Allergy Other Verified 01/24/21 14:35 Home Meds: Home Meds . [No Known Home Meds] 04/28/19 [History] Past Medical History HEENT History: Reports: Other (See Below) Other HEENT History: chronic ear infections,tube present (R) ear,graft to (L) ear. States has very limited hearing but can read lips. Cardiovascular History: Reports: None Respiratory History: Reports: None Gastrointestinal History: Reports: Cholelithiasis, Other (See Below) Other Gastrointestinal History: lap-lucila in 2017 Genitourinary History: Reports: UTI, Recurrent TEASELER History: Reports: Hyperemesis, , Other (See Below) Other TEASELER History: - due in Jan 022016 - . due Oct 16 2018 Musculoskeletal History: Reports: None Neurological History: Reports: Migraines - Past Surgical History Head Surgeries/Procedures: Reports: None HEENT Surgical History: Reports: Myringotomy w Tube(s), Other (See Below) Other HEENT Surgeries/Procedures: reconstructive ear surgery GI Surgical History: Reports: Cholecystectomy Dermatological Surgical History: Reports: None Social & Family History - Family History Family Medical History: No Pertinent Family History - Tobacco Use Tobacco Use Status *Q: Never Tobacco User - Caffeine Use Caffeine Use: Reports: Soda ED ROS GENERAL - Review of Systems Review Of Systems: Comprehensive ROS is negative, except as noted in HPI. ED EXAM, GENERAL - Physical Exam Exam: See Below Free Text/Narrative:: Alert, oriented, with darkness around the eyes, significant evidence of malaise/ illness. Pupils are equal round and reactive to light with no icterus no injection. Extraocular motion is intact. Limited nondilated funduscopy is benign. She is significantly photophobic. Bilateral tympanic membranes are significantly scarred with the right having a slight window appearance questionable prior tympanoplasty. Left ear significantly scarred with a mild bulging presentation no evidence of infection. Nasal and oral mucosa is pink and moist she has a pierced tongue. No erythema in the oropharynx no exudate. Neck is soft supple no rigidity, no lymphadenopathy, I do not appreciate any carotid bruit. Thorax he is slightly diminished with no wheezes nor crackles likely body habitus. Cardiac is S1-S2 tachycardic with no appreciated murmur. Rotund abdomen no pain, no tenderness, bowel sounds are present mildly hypoactive denying any pain to examination with no rebound tenderness. +1 edema to the lower extremities with skin being clammy to the wrist forearm as well as the lower extremities. No cyanosis appreciated capillary refill less than 2 seconds. Negative Zari's sign bilateral. #1 Interpretation EKG Date: 01/24/21 Time: 14:51 Rhythm: NSR Rate (Beats/Min): 101 [place]: Normal P-Wave: Present ST-T: Depressed QT: Normal Comparison: No Change (Rate change) Course - Vital Signs Last Recorded V/S: Last Vital Signs Temp 97.3 F 01/24/21 14:49 Pulse 96 01/24/21 15:30 Resp 14 01/24/21 15:30 BP 138/97 H 01/24/21 15:30 Pulse Ox 97 01/24/21 15:30 - Orders/Labs/Meds Orders: Active Orders 24 hr Category Date Time Status Peripheral IV Care [RC] . DIRECTED Care 01/24/21 14:24 Active Chest 1V Frontal [CR] Stat Exams 01/24/21 14:23 Taken Head wo Cont [CT] Stat Exams 01/24/21 14:26 Taken CULTURE BLOOD [BC] Stat Lab 01/24/21 14:24 Received CULTURE URINE [RM] Stat Lab 01/24/21 15:25 Received Sodium Chloride 0.9% [Saline Flush] Med 01/24/21 14:24 Active 10 ml FLUSH Q8HR PRN Peripheral IV Insertion Adult [OM.PC] Stat Oth 01/24/21 14:23 Ordered EKG 12 Lead [EK] Stat Ther 01/24/21 14:23 Ordered Medication Orders Sodium Chloride (Sodium Chloride 0.9% 10 Ml Syringe) 10 ml FLUSH Q8HR PRN PRN Reason: keep vein open Labs: Laboratory Tests 01/24/21 01/24/21 01/24/21 Range/Units 14:25 14:25 14:25 WBC 9.34 (5.00-10.00) 10^3/uL RBC 5.12 (3.80-5.50) 10^6/uL Hgb 13.9 (12.0-16.0) g/dL Hct 42.6 (37.0-47.0) % MCV 83.2 (82.0-92.0) fL MCH 27.1 (27.0-31.0) pg MCHC 32.6 (32.0-36.0) g/dL RDW 14.0 (11.5-14.5) % Plt Count 224 (150-400) 10^3/uL MPV 9.8 (7.4-10.4) fL Immature Gran % (Auto) 0.3 (0.0-5.0) % Neut % (Auto) 68.6 (50.0-70.0) % Lymph % (Auto) 22.8 (20.0-40.0) % [place] % (Auto) 7.6 (2.0-8.0) % Eos % (Auto) 0.5 L (1.0-3.0) % Baso % (Auto) 0.2 (0.0-1.0) % Neut # (Auto) 6.40 (2.50-7.00) 10^3/uL Lymph # (Auto) 2.13 (1.00-4.00) 10^3/uL [place] # (Auto) 0.71 (0.10-0.80) 10^3/uL Eos # (Auto) 0.05 L (0.10-0.30) 10^3/uL Baso # (Auto) 0.02 (0.00-0.10) 10^3/uL Immature Gran # (Auto) 0.03 (0.00-0.50) 10^3/uL D-Dimer, Quantitative 866 H (<400) ng/mL Sodium 139 (136-145) mmol/L Potassium 5.1 (3.5-5.1) mmol/L Chloride 102 (98-107) mmol/L Carbon Dioxide 25.7 (21.0-32.0) mmol/L Anion Gap 16.4 H (5-15) mmol/L BUN 12 (7-18) mg/dL Creatinine 0.89 (0.51-1.17) mg/dL Est Cr Clr Drug Dosing 108.00 mL/min Estimated GFR (MDRD) > 60 mL/min Glucose 95 (70-140) mg/dL Lactic Acid (0.4-2.0) mmol/L Calcium 9.1 (8.7-10.3) mg/dL Total Bilirubin 0.7 (0.2-1.0) mg/dL AST 30 (15-37) U/L ALT 29 (14-63) U/L Alkaline Phosphatase 101 (46-116) U/L Troponin I High Sens < 4.000 (0-51.000) pg/mL Total Protein 8.6 H (6.4-8.2) g/dL Albumin 3.47 (3.40-5.00) g/dL Specimen Type Urine Color (YELLOW) Urine Appearance (CLEAR) Urine pH (5.0-9.0) Ur Specific [place] (1.005-1.030) Urine Protein (NEGATIVE) mg/dL Urine Glucose (UA) (NEGATIVE) mg/dL Urine Ketones (NEGATIVE) mg/dL Urine Occult Blood (NEGATIVE) Urine Nitrite (NEGATIVE) Urine Bilirubin (NEGATIVE) Urine Urobilinogen (0.2-1.0) E.U./dL Ur Leukocyte Esterase (NEGATIVE) Urine RBC (0-5) /HPF Urine WBC (0-5) /HPF Ur Epithelial Cells /LPF Urine Bacteria (NONE TO FEW) /HPF Influenza Type A RNA (NEGATIVE) RSV RNA (INAAT) (NEGATIVE) Influenza Type B RNA (NEGATIVE) SARS-CoV-2 RNA (MACHO) (NEGATIVE) 01/24/21 01/24/21 01/24/21 Range/Units 14:25 14:30 15:25 WBC (5.00-10.00) 10^3/uL RBC (3.80-5.50) 10^6/uL Hgb (12.0-16.0) g/dL Hct (37.0-47.0) % MCV (82.0-92.0) fL MCH (27.0-31.0) pg MCHC (32.0-36.0) g/dL RDW (11.5-14.5) % Plt Count (150-400) 10^3/uL MPV (7.4-10.4) fL Immature Gran % (Auto) (0.0-5.0) % Neut % (Auto) (50.0-70.0) % Lymph % (Auto) (20.0-40.0) % [place] % (Auto) (2.0-8.0) % Eos % (Auto) (1.0-3.0) % Baso % (Auto) (0.0-1.0) % Neut # (Auto) (2.50-7.00) 10^3/uL Lymph # (Auto) (1.00-4.00) 10^3/uL [place] # (Auto) (0.10-0.80) 10^3/uL Eos # (Auto) (0.10-0.30) 10^3/uL Baso # (Auto) (0.00-0.10) 10^3/uL Immature Gran # (Auto) (0.00-0.50) 10^3/uL D-Dimer, Quantitative (<400) ng/mL Sodium (136-145) mmol/L Potassium (3.5-5.1) mmol/L Chloride (98-107) mmol/L Carbon Dioxide (21.0-32.0) mmol/L Anion Gap (5-15) mmol/L BUN (7-18) mg/dL Creatinine (0.51-1.17) mg/dL Est Cr Clr Drug Dosing mL/min Estimated GFR (MDRD) mL/min Glucose (70-140) mg/dL Lactic Acid 1.2 (0.4-2.0) mmol/L Calcium (8.7-10.3) mg/dL Total Bilirubin (0.2-1.0) mg/dL AST (15-37) U/L ALT (14-63) U/L Alkaline Phosphatase (46-116) U/L Troponin I High Sens (0-51.000) pg/mL Total Protein (6.4-8.2) g/dL Albumin (3.40-5.00) g/dL Specimen Type Ur[place]ath Urine Color Yellow (YELLOW) Urine Appearance Cloudy H (CLEAR) Urine pH 6.0 (5.0-9.0) Ur Specific [place] 1.020 (1.005-1.030) Urine Protein 30 H (NEGATIVE) mg/dL Urine Glucose (UA) Negative (NEGATIVE) mg/dL Urine Ketones Negative (NEGATIVE) mg/dL Urine Occult Blood Large H (NEGATIVE) Urine Nitrite Negative (NEGATIVE) Urine Bilirubin Small H (NEGATIVE) Urine Urobilinogen 0.2 (0.2-1.0) E.U./dL Ur Leukocyte Esterase Small H (NEGATIVE) Urine RBC 10-20 H (0-5) /HPF Urine WBC 10-20 H (0-5) /HPF Ur Epithelial Cells Moderate H /LPF Urine Bacteria Moderate H (NONE TO FEW) /HPF Influenza Type A RNA Negative (NEGATIVE) RSV RNA (INAAT) Negative (NEGATIVE) Influenza Type B RNA Negative (NEGATIVE) SARS-CoV-2 RNA (MACHO) Negative (NEGATIVE) Meds: Medications Generic Name Dose Route Start Last Admin Trade Name Freq PRN Reason Stop Dose Admin Sodium Chloride 10 ml 01/24/21 14:24 Sodium Chloride 0.9% 10 Ml Syringe FLUSH Q8HR PRN keep vein open Discontinued Medications Generic Name Dose Route Start Last Admin Trade Name Royce PRN Reason Stop Dose Admin Diphenhydramine HCl 50 mg 01/24/21 14:36 01/24/21 15:03 Diphenhydramine 50 Mg/Ml Sdv IVPUSH 01/24/21 14:37 50 mg ONETIME ONE Administration Sodium Chloride 1,000 mls @ 999 mls/hr 01/24/21 14:32 01/24/21 14:47 Normal Saline IV 01/24/21 15:32 999 mls/hr .BOLUS ONE Administration Ketorolac Tromethamine 30 mg 01/24/21 14:34 01/24/21 15:03 Ketorolac 30 Mg/Ml Sdv IVPUSH 01/24/21 14:35 30 mg ONETIME ONE Administration Ondansetron HCl 8 mg 01/24/21 15:06 01/24/21 15:12 Ondansetron 4 Mg/2 Ml Sdv IVPUSH 01/24/21 15:07 8 mg ONETIME ONE Administration - Re-Assessments/Exams Free Text/Narrative Re-Assessment/Exam: 01/24/21 15:18 Declines catheterized urine and she states she has not bled since yesterday. Will strongly educate on hygiene and cleansing prior to a clean-catch urine. 01/24/21 16:45 No clinical evidence of dehydration other than slightly concentrated urine and physical appearance. We discussed the slightly elevated D-dimer with no cardiopulmonary symptoms and no likelihood of requiring CTA. Wells score of 1.5 Tachycardia only positive 01/24/21 16:51 Departure - Departure Time of Disposition: 16:43 Disposition: Home, Self-Care 01 Condition: Good Clinical Impression: Heart palpitations, Dizziness, Migraine - Discharge Information Instructions: Dehydration, Adult, [id number], Migraine Headache Referrals: PCP,Unknown [Primary Care Provider] - Forms: ED Department Discharge Additional Instructions: You need to go home and rest in a quiet, cool, dark area with minimal interference. You need to increase your fluid hydration specifically water and avoid any irritants. Limit your caffeine intake and take your medications as directed. You need to reschedule your appointment with Fay for 1. your annual physical which is coming due this month. 2 to discuss the lack of efficacy of your current treatment regimen and discuss options for medication changes or adjustment. In review of the [facility] chart your neurologist visit was while you were which would limit their options of medications. Also that they stated they had exhausted their treatment plan does not mean that all medications for prevention and/or treatment were exhausted. There are numerous new medications on the market some of which are monthly injection that reduces the severity and frequency of migraine headache. Call the clinic as you will need a appointment for recheck and discussion on the headache not in conjunction or lump together with your annual physical. Return to the emergency department as needed outside of clinic hours. Sepsis Event Note (ED) - Focused Exam Vital Signs: Vital Signs Temp Pulse Resp BP Pulse Ox 01/24/21 15:30 96 14 138/97 H 97 01/24/21 15:00 117 H 14 138/97 H 98 01/24/21 14:49 97.3 F 112 H 14 130/86 97 - Problem List & Annotations (1) Dizziness SNOMED Code(s): 745127286, 181559863 Code(s): R42 - DIZZINESS AND GIDDINESS Status: Acute Priority: High Current Visit: Yes (2) Syncope and collapse SNOMED Code(s): 023812443 Code(s): R55 - SYNCOPE AND COLLAPSE Status: Acute Priority: High Current Visit: Yes (3) Heart palpitations SNOMED Code(s): 07469754 Code(s): R00.2 - PALPITATIONS Status: Acute Priority: High Current Visit: Yes (4) Headache, chronic migraine without aura SNOMED Code(s): 75854244 Code(s): G43.709 - CHRONIC MIGRAINE W/O AURA, NOT INTRACTABLE, W/O STAT MIGR Status: Acute Priority: High Current Visit: Yes Qualifiers: Status migrainosus presence: without status migrainosus Intractability: not intractable Qualified Code(s): G43.709 - Chronic migraine without aura, not intractable, without status migrainosus - Problem List Review Problem List Initiated/Reviewed/Updated: Yes - My Orders Last 24 Hours: My Active Orders 01/24/21 14:23 Chest 1V Frontal [CR] Stat Peripheral IV Insertion Adult [OM.PC] Stat EKG 12 Lead [EK] Stat 01/24/21 14:24 Peripheral IV Care [RC] . DIRECTED CULTURE BLOOD [BC] Stat Sodium Chloride 0.9% [Saline Flush] 10 ml FLUSH Q8HR PRN 01/24/21 14:26 Head wo Cont [CT] Stat 01/24/21 15:25 CULTURE URINE [RM] Stat - Assessment/Plan Last 24 Hours: My Active Orders 01/24/21 14:23 Chest 1V Frontal [CR] Stat Peripheral IV Insertion Adult [OM.PC] Stat EKG 12 Lead [EK] Stat 01/24/21 14:24 Peripheral IV Care [RC] . DIRECTED CULTURE BLOOD [BC] Stat Sodium Chloride 0.9% [Saline Flush] 10 ml FLUSH Q8HR PRN 01/24/21 14:26 Head wo Cont [CT] Stat 01/24/21 15:25 CULTURE URINE [RM] Stat Plan: You need to go home and rest in a quiet, cool, dark area with minimal interference. You need to increase your fluid hydration specifically water and avoid any irritants. Limit your caffeine intake and take your medications as directed. You need to reschedule your appointment with Fay for 1. your annual physical which is coming due this month. 2 to discuss the lack of efficacy of your current treatment regimen and discuss options for medication changes or adjustment. In review of the [facility] chart your neurologist visit was while you were which would limit their options of medications. Also that they stated they had exhausted their treatment plan does not mean that all medications for prevention and/or treatment were exhausted. There are numerous new medications on the market some of which are monthly injection that reduces the severity and frequency of migraine headache. Call the clinic as you will need a appointment for recheck and discussion on the headache not in conjunction or lump together with your annual physical. Return to the emergency department as needed outside of clinic hours.
[2021-01-24] MEDS ORDERED: Ketorolac 30 MG/ML SDV IVPUSH ONE (14:34)
[2021-01-24] MEDS ORDERED: diphenhydrAMINE 50 MG/ML SDV IVPUSH ONE (14:36)
[2021-01-24] MEDS ORDERED: Ondansetron 4 MG/2 ML SDV IVPUSH ONE (15:06)
[2021-01-24 15:13] LABS: ANION GAP 16.4 mmol/L (5-15); CHLORIDE,CL 102 mmol/L (98-107); SODIUM,NA 139 mmol/L (136-145)
[2021-01-24 15:23] LABS: CORONAVIRUS COVID-19 NAA NEGATIVE (NEGATIVE); RESPIRATORY SYNCYTIAL VIR NAA NEGATIVE (NEGATIVE)
[2021-01-24 16:48] VITALS: BP 136/89; PULSE 89
== END 2021-01-24 16:55 | disposition home or self-care (01) ==
LOC: KA.ED 14:16
DX: G43.909 Migraine, unspecified, not intractable, without status migrainosus (principal); R42 Dizziness and giddiness; R00.2 Palpitations; Z20.822 Contact with and (suspected) exposure to COVID-19
CPT/HCPCS: 0241U; 36415; 70450; 71045; 80053; 81001; 83605; 84484; 85025; 85379; 87040; 87086; 87088; 87186; 96374; 96375; 99284-25; J1200; J1885; J2405; J7030